=== PATIENT | male | born 1955 | race Caucasian/White ===

== ENCOUNTER 2023-05-26 01:51 | Outpatient (CLI) | payer MEDICARE, BC | END 2023-05-26 01:52 | disposition critical access hospital (66) | LOC: EMS 01:51 | DX: R55 Syncope and collapse (principal); M54.2 Cervicalgia; W18.39XA Other fall on same level, initial encounter; Y92.003 Bedroom of unspecified non-institutional (private) residence as the place of occurrence of the external cause; R00.1 Bradycardia, unspecified | CPT/HCPCS: A0425; A0429 ==